=== PATIENT | male | born 1955 | race Caucasian/White ===

== ENCOUNTER 2025-01-26 09:12 | Outpatient (CLI) | payer MEDICARE, BC, SELFPAY ==
--- NOTE | ~2025-01-26 | MR_ITS ---
EXAMINATION: MR shoulder LT wo con DATE: 01/26/2025 09:45 INDICATION: Acute pain of left shoulder. TECHNIQUE: Magnetic resonance imaging (MRI) of the left shoulder was performed without intravenous contrast. Sequences included axial PD-weighted FS FSE, coronal oblique PD-weighted FS FSE and T2-weighted FS FSE, and sagittal oblique T2-weighted FS FSE and T1-weighted FSE. COMPARISON: None. FINDINGS: Coracoacromial arch: The acromion undersurface is curved in morphology (type II). There is severe acromioclavicular joint osteoarthritis. There is severe subacromial/subdeltoid bursitis. Rotator cuff: There is a full-thickness tear of supraspinatus and infraspinatus tendons measuring greater than 5 cm anterior to posterior by greater than 5 cm proximal to distal. There is mild teres minor tendinopathy. There is a partial tear of the myotendinous junction of teres minor. There is mild fatty atrophy of supraspinatus and infraspinatus muscle bellies. There is increased T2-weighted signal intensity in supraspinatus and infraspinatus muscle bellies, consistent with subacute denervation versus strains. There is severe subscapularis tendinopathy. Biceps tendon and glenoid labrum: Biceps tendon is in bicipital groove. There is a partial tear of biceps tendon. There is widespread tearing of the glenoid labrum (SLAP tear). Fluid: There is a large glenohumeral joint effusion. Bones/cartilage: There is shallow partial-thickness cartilage loss of glenoid and humeral head. IMPRESSION: 1. Massive full-thickness rotator cuff tear. 2. Partial tear of biceps tendon. 3. Mild glenohumeral joint chondrosis. SLAP tear. 4. Severe acromioclavicular joint osteoarthritis. 5. Large glenohumeral joint effusion and severe subacromial/subdeltoid bursitis. Reviewed, dictated and finalized at location E. IMPRESSION: 1. Massive full-thickness rotator cuff tear. 2. Partial tear of biceps tendon. 3. Mild glenohumeral joint chondrosis. SLAP tear. 4. Severe acromioclavicular joint osteoarthritis. 5. Large glenohumeral joint effusion and severe subacromial/subdeltoid bursitis .
== END 2025-01-26 09:13 | disposition home or self-care (01) ==
LOC: MICIMG 09:13
PROVIDERS: PCP Physician Assistant; Visit Provider Physician Assistant
DX: M19.012 Primary osteoarthritis, left shoulder (principal); M25.412 Effusion, left shoulder; M75.102 Unspecified rotator cuff tear or rupture of left shoulder, not specified as traumatic
CPT/HCPCS: 73221